=== PATIENT | male | born 1990 | race Caucasian/White ===

== ENCOUNTER 2017-03-13 04:35 | Emergency (ER) | payer BC ==
--- NOTE | 2017-03-19 11:01 | ER ---
ADMIT: 03/13/2017 RM/LOC: ER [facility] MR#: [id number] [address] [address] [place] [address] Emergency Room Report SEX: M AGE: 26 : 1990 DATE: 03/13/2017 Patient initially seen by Dr. Schneider. They were quite busy and so he has been here for a while. He does have a 2.5 mm stone on the right side causing his pain. He has never had one before. CBC, chemistry, and UA are negative, except the UA does have rbc's, but that does not appear to be infected. He is discharged home with Minerva 5/325 #20, 1-2 p.o. q.6 p.r.n. pain. He also can take Motrin with this as well, this would be 3 or 4 [id number] every 6 hours. He should follow up with Dr. Fry next week. He is off work until Dr. Fry releases him. CONDITION ON DISCHARGE: Fair. Casper Patel MD/ bill JOB #: [id number] CC: Jeison Schneider MD, Attending Physician
== END 2017-03-13 08:15 | disposition home or self-care (01) ==
LOC: ER 04:35
DX: N20.1 Calculus of ureter (principal)

== ENCOUNTER 2017-03-18 01:34 | Emergency (ER) | payer BC ==
--- NOTE | 2017-03-19 04:09 | ER ---
ADMIT: 03/18/2017 RM/LOC: ER [facility] MR#: [id number] [id number] [place], [place] [address] [place] [address] Emergency Room Report SEX: M AGE: 26 : 1990 DATE: 03/18/2017 TIME: 0134 hours. Please refer to my T-sheet for complete H and P. HISTORY OF PRESENT ILLNESS: Briefly, the patient is a 26-year-old who comes in with flank pain, was recently diagnosed with a kidney stone about 3 to 4 days ago. He said the pain has not completely resolved. He is here for evaluation. PHYSICAL EXAMINATION: VITAL SIGNS: Stable. HEENT: Grossly normal. LUNGS: Clear. ABDOMEN: Soft, tender in the right CVA region. EMERGENCY DEPARTMENT COURSE: We gave him 60 of Toradol IM, Bactrim DS one p.o. CBC was normal except white count 12.3. Chemistries normal, and urine was negative. I looked up his CT scan, revealed a distal 2 mm ureter stone. However, there was some proximal hydro that was a little inflammatory around the kidney itself. He does not look toxic now. I had a long discussion with him. He is ready for discharge. ASSESSMENT: Renal colic. PLAN: Put him on Bactrim DS b.i.d. for 7 days, Shafer 5. I want him to follow up with a urologist this time. Return if worse. Michel Dove MD/ bill JOB #: [id number] CC: Michel Dove MD, Attending Physician Nile Fry MD, Family Physician Arnoldo Hurtado MD
== END 2017-03-18 03:17 | disposition home or self-care (01) ==
LOC: ER 01:34
DX: N23 Unspecified renal colic (principal); F17.210 Nicotine dependence, cigarettes, uncomplicated; Z87.442 Personal history of urinary calculi

== ENCOUNTER 2017-04-29 22:51 | Emergency (ER) | payer BC ==
--- NOTE | 2017-04-30 19:35 | ER ---
ADMIT: 04/29/2017 RM/LOC: ER [facility] MR#: [id number] [address] [address] [address] [place] [address] Emergency Room Report SEX: M AGE: 27 : 1990 DATE: 04/29/2017 HISTORY OF PRESENT ILLNESS: The patient is a 27-year-old male with no chronic medical condition came to the ER with chief complaint 7 days of right anterior lower chest and right posterior shoulder pain. The pain also is mostly on the right lateral lower chest and increases with movement of the right upper extremity and deep breathing. 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 The patient had the pain for the last 7 days and it is continuous and increases with movement of the limbs. The patient denies any direct trauma or injury to the chest. The patient denies shortness of breath. PHYSICAL EXAMINATION: GENERAL: The patient was afebrile. Heart rate of 70 and blood pressure 121/67 and respiratory rate of 18. The patient was in mild to moderate distress and anxious. HEAD AND NECK: Normal. CHEST: The patient had tenderness in the right lateral chest on the insertion of the serratus muscles, which is more like point tenderness. I did not feel any crepitations. LUNGS: Clear to auscultation bilaterally. HEART: Normal heart sounds. ABDOMEN: Soft. There is no right upper quadrant tenderness in abdomen. There is no CVA tenderness on the back. The rest of the physical examination is noncontributory and normal. LABORATORY DATA: Chest x-ray was negative for any acute changes. Urine was positive of [address] kidney stone protocol was negative for any stones. The patient had white BC of 15.3 with hematocrit of 14.7, and platelet of 256,000. Creatinine was 0.8, and glucose was 106. EMERGENCY DEPARTMENT COURSE: The patient received Toradol IM for pain control. Pain moderately controlled, considering the presentation and atypical chest pain, musculoskeletal pain is at top of differentials. The patient was discharged to home with return precautions, follow up with the primary doctor as needed. Jeison Schneider MD/ bill JOB #: [id number] CC: Jeison Schneider MD, Attending Physician Aubrey Umanzor MD, Family Physician
== END 2017-04-30 02:03 | disposition home or self-care (01) ==
LOC: ER 22:51
DX: R07.89 Other chest pain (principal); F17.210 Nicotine dependence, cigarettes, uncomplicated